=== PATIENT | female | born 1970 | race Two or more races ===

== ENCOUNTER 2017-11-27 16:36 | Outpatient (CLI) | payer OTHER | END 2017-11-27 16:43 | disposition home or self-care (01) | LOC: RAD 16:36 | DX: M72.2 Plantar fascial fibromatosis (principal) ==

== ENCOUNTER 2020-12-02 08:00 | Outpatient (CLI) | payer OTHER | END 2020-12-02 08:30 | disposition home or self-care (01) | LOC: PPH VACUNA 08:00 | PROVIDERS: ATTEND Emergency Medicine Pediatric Emergency Medicine | DX: Z23 Encounter for immunization (principal) ==

== ENCOUNTER 2020-12-02 13:32 | Outpatient (CLI) | payer OTHER | END 2020-12-02 13:43 | disposition home or self-care (01) | LOC: SONOGRAMA 13:32 → MAMO-SONO 14:15 | PROVIDERS: ATTEND Specialist | DX: E04.1 Nontoxic single thyroid nodule (principal); E03.8 Other specified hypothyroidism ==

== ENCOUNTER 2021-06-16 08:00 | Outpatient (CLI) | payer OTHER | END 2021-06-16 08:30 | disposition home or self-care (01) | LOC: PPH VACUNA 08:00 | PROVIDERS: ATTEND Emergency Medicine Pediatric Emergency Medicine | DX: Z23 Encounter for immunization (principal) ==